=== PATIENT | male | born 1980 | race Two or more races ===

== ENCOUNTER 2017-04-08 15:45 | Emergency (ER) | payer SELFPAY | END 2017-04-08 18:04 | disposition home or self-care (01) | LOC: D.ER 15:45 | DX: S61.211A Laceration without foreign body of left index finger without damage to nail, initial encounter (principal); W26.0XXA Contact with knife, initial encounter; Y93.89 Activity, other specified; Y92.029 Unspecified place in mobile home as the place of occurrence of the external cause ==